=== PATIENT | male | born 1990 | race Two or more races ===

== ENCOUNTER 2018-11-04 13:07 | Emergency (ER) | payer SELFPAY ==
[~2018-11-04] VITALS: Ht 188 cm; Wt 81.6 kg
--- NOTE | 2018-11-04 13:30 | NUR ---
ED Nurse Note: pt brought in by [facility] c/o behavioral, per EMS report, pt consumed alcohol today and was showing combative and aggressive behaviors toward other people at the motel. Pt states he did drink alcohol but denies doing illegal drugs. pt AA&ox4, gcs=15, calm and cooperative, skin warm and dry, resp even and unlabored on RA, -n/v/d, ambulates w/ steady gait, vss. pt denies HI/SI/VH/AH. will cont monitor.
--- NOTE | 2018-11-04 13:45 | NUR ---
ED Nurse Note: pt belongings in locker 3, pt wallet, carkey and briones sent with security for safekeeping.
--- NOTE | 2018-11-04 13:54 | Emergency Room Report ---
History of Present Illness General Chief Complaint: Behavioral Complaint Source: Patient (Jt Davis) Present Illness HPI 28-year-old male patient presents the ER brought in by police for 5150 hold. Patient denies acute complaints at this time, denies shortness of breath or chest pain. Denies abdominal pain. Denies head trauma. Police report they were called to scene were patient was threatening violence against his family. Patient denies past medical history. Denies thoughts of hurting himself. Denies past psychiatric history. Reports history of drinking "a couple of beers ", denies drug use. (Jt Davis) Allergies: Coded Allergies: No Known Allergies (Unverified , 11/04/18) Patient History Past Medical History: see triage record Reviewed Nursing Documentation: PMH: Agreed; PSxH: Agreed (Jt Davis) Nursing Documentation-PMH Past Medical History: No Stated History (Jt Davis) Review of Systems All Other Systems: negative except mentioned in HPI (Jt Davis) Physical Exam Vital Signs Date Time Temp Pulse Resp B/P (MAP) Pulse Ox O2 Delivery O2 Flow Rate FiO2 11/04/18 13:03 99.0 116 20 134/90 99 Room Air Sp02 EP Interpretation: reviewed, normal General Appearance: well appearing, no apparent distress, alert, GCS 15, non- toxic Head: normocephalic, atraumatic, other - Negative jackson sign, negative raccoon eyes, no skull depression Eyes: bilateral eye normal inspection, bilateral eye PERRL ENT: hearing grossly normal, normal pharynx, no angioedema, normal voice, uvula midline, moist mucus membranes Neck: full range of motion, no bony tend Respiratory: lungs clear, normal breath sounds, no rhonchi, no respiratory distress, no accessory muscle use, no wheezing, speaking full sentences Cardiovascular #1: regular rate, rhythm, no edema Gastrointestinal: non tender, soft, no mass, non-distended, no guarding, no rebound Genitourinary: no CVA tenderness Musculoskeletal: back normal, digits/nails normal, gait/station normal, normal range of motion, non-tender Neurologic: alert, oriented x3, responsive, motor strength/tone normal, sensory intact Psychiatric: mood/affect normal Skin: no rash Lymphatic: no adenopathy (Jt Davis) Medical Decision Making PA Attestation Dr. Mary is my supervising Physician whom patient management has been discussed with. (Jt Davis) Homeless Attestation I, The treating physician Dr. Paredes, have assessed that patient is medically stable for discharge to an outpatient disposition. (Glenn Paredes MD) Diagnostic Impression: Primary Impression: Behavioral disorder Additional Impressions: Amphetamine abuse Alcohol abuse ER Course Pt. presents to the ED c/o behavioral disorder intoxication. Ddx considered but are not limited to anxiety, depression, drug use, alcohol use , behavioral disorder. Denies head trauma, negative jackson sign, negative raccoon eyes, no skull depression, cranial nerves intact as tested, no focal neuro deficits, require CT head at this time, low suspicion for ICH. Vital signs: are WNL, pt. is afebrile Ordered labs, urine drug screen, serum alcohol. ER COURSE: Physical exam benign. Patient pain of x4, alert and oriented to person place time and president. CBC unremarkable, no elevation WBCs CMP unremarkable, no elevation in LFTs Acetaminophen and salicylate levels WNL Serum alcohol 22, provided with fluids. Urine drug screen positive for amphetamine, remainder negative. Patient resting comfortably in no acute distress, nontoxic appearing. Patient medically cleared. Patient signed out to Dr. Lomeli. - Please note that this Emergency Department Report was dictated using [employer] operator technology software, occasionally this can lead to erroneous entry secondary to interpretation by the dictation equipment. [employer] Test 11/04/18 14:11 11/04/18 18:10 White Blood Count 8.3 K/UL (4.8-10.8) Red Blood Count 4.99 M/UL (4.70-6.10) Hemoglobin 15.3 G/DL (14.2-18.0) Hematocrit 44.9 % (42.0-52.0) Mean Corpuscular Volume 90 FL (80-99) Mean Corpuscular Hemoglobin 30.6 PG (27.0-31.0) Mean Corpuscular Hemoglobin Concent 34.0 G/DL (32.0-36.0) Red Cell Distribution Width 11.4 % (11.6-14.8) Platelet Count 321 K/UL (150-450) Mean Platelet Volume 5.3 FL (6.5-10.1) Neutrophils (%) (Auto) 57.0 % (45.0-75.0) Lymphocytes (%) (Auto) 28.5 % (20.0-45.0) Monocytes (%) (Auto) 7.9 % (1.0-10.0) Eosinophils (%) (Auto) 4.7 % (0.0-3.0) Basophils (%) (Auto) 1.8 % (0.0-2.0) Sodium Level 139 MMOL/L (136-145) Potassium Level 3.6 MMOL/L (3.5-5.1) Chloride Level 105 MMOL/L (98-107) Carbon Dioxide Level 27 MMOL/L (21-32) Anion Gap 7 mmol/L (5-15) Blood Urea Nitrogen 11 mg/dL (7-18) Creatinine 1.0 MG/DL (0.55-1.30) Estimat Glomerular Filtration Rate > 60 mL/min (>60) Glucose Level 97 MG/DL (74-106) Calcium Level 9.0 MG/DL (8.5-10.1) Total Bilirubin 0.3 MG/DL (0.2-1.0) Aspartate Amino Transf (AST/SGOT) 17 U/L (15-37) Alanine Aminotransferase (ALT/SGPT) 23 U/L (12-78) Alkaline Phosphatase 85 U/L (46-116) Total Protein 6.9 G/DL (6.4-8.2) Albumin 3.8 G/DL (3.4-5.0) Globulin 3.1 g/dL Albumin/Globulin Ratio 1.2 (1.0-2.7) Salicylates Level 0.7 ug/mL (2.8-20) Acetaminophen Level < 2 MCG/ML (10-30) Serum Alcohol 22 mg/dL Urine Opiates Screen Negative (NEGATIVE) Urine Barbiturates Screen Negative (NEGATIVE) Phencyclidine (PCP) Screen Negative (NEGATIVE) Urine Amphetamines Screen Positive (NEGATIVE) Urine Benzodiazepines Screen Negative (NEGATIVE) Urine Cocaine Screen Negative (NEGATIVE) Urine Marijuana (THC) Screen Negative (NEGATIVE) (Jt Davis P.A.) ER Course Please see above note. Patient sleepy but oriented and calm. Contact our psychiatrist to come to evaluate. Cleared from 5150 by our psychiatrist. Patient wants to go had has means to support himself at this time. Denies SI or HI. Patient stable for outpatient observation and treatment. Laboratory Tests Test 11/04/18 14:11 11/04/18 18:10 White Blood Count 8.3 K/UL (4.8-10.8) Red Blood Count 4.99 M/UL (4.70-6.10) Hemoglobin 15.3 G/DL (14.2-18.0) Hematocrit 44.9 % (42.0-52.0) Mean Corpuscular Volume 90 FL (80-99) Mean Corpuscular Hemoglobin 30.6 PG (27.0-31.0) Mean Corpuscular Hemoglobin Concent 34.0 G/DL (32.0-36.0) Red Cell Distribution Width 11.4 % (11.6-14.8) L Platelet Count 321 K/UL (150-450) Mean Platelet Volume 5.3 FL (6.5-10.1) L Neutrophils (%) (Auto) 57.0 % (45.0-75.0) Lymphocytes (%) (Auto) 28.5 % (20.0-45.0) Monocytes (%) (Auto) 7.9 % (1.0-10.0) Eosinophils (%) (Auto) 4.7 % (0.0-3.0) H Basophils (%) (Auto) 1.8 % (0.0-2.0) Sodium Level 139 MMOL/L (136-145) Potassium Level 3.6 MMOL/L (3.5-5.1) Chloride Level 105 MMOL/L (98-107) Carbon Dioxide Level 27 MMOL/L (21-32) Anion Gap 7 mmol/L (5-15) Blood Urea Nitrogen 11 mg/dL (7-18) Creatinine 1.0 MG/DL (0.55-1.30) Estimate Glomerular Filtration Rate > 60 mL/min (>60) Glucose Level 97 MG/DL (74-106) Calcium Level 9.0 MG/DL (8.5-10.1) Total Bilirubin 0.3 MG/DL (0.2-1.0) Aspartate Amino Transferase (AST) 17 U/L (15-37) Alanine Aminotransferase (ALT) 23 U/L (12-78) Alkaline Phosphatase 85 U/L (46-116) Total Protein 6.9 G/DL (6.4-8.2) Albumin 3.8 G/DL (3.4-5.0) Globulin 3.1 g/dL Albumin/Globulin Ratio 1.2 (1.0-2.7) Salicylates Level 0.7 ug/mL (2.8-20) L Acetaminophen Level < 2 MCG/ML (10-30) L Serum Alcohol 22 mg/dL Urine Opiates Screen Negative (NEGATIVE) Urine Barbiturates Screen Negative (NEGATIVE) Phencyclidine (PCP) Screen Negative (NEGATIVE) Urine Amphetamines Screen Positive (NEGATIVE) H Urine Benzodiazepines Screen Negative (NEGATIVE) Urine Cocaine Screen Negative (NEGATIVE) Urine Marijuana (THC) Screen Negative (NEGATIVE) (Glenn Paredes MD) Last Vital Signs Date Time Temp Pulse Resp B/P (MAP) Pulse Ox O2 Delivery O2 Flow Rate FiO2 11/04/18 13:03 99.0 116 20 134/90 99 Room Air Status: improved (Jt Davis) Last Vital Signs Date Time Temp Pulse Resp B/P (MAP) Pulse Ox O2 Delivery O2 Flow Rate FiO2 11/05/18 11:13 97.8 75 17 129/75 99 Room Air Status: improved (Glenn Paredes MD) Disposition: HOME, SELF-CARE Condition: Improved Jt Davis Nov 04, 2018 13:54 Glenn Paredes MD Nov 05, 2018 07:33
[2018-11-04 14:20] LABS: BASOPHILS % (AUTO) 1.8 % (0.0-2.0); EOSINOPHILS % (AUTO) 4.7 % (0.0-3.0); HEMATOCRIT 44.9 % (42.0-52.0); HEMOGLOBIN 15.3 G/DL (14.2-18.0); LYMPHOCYTES % (AUTO) 28.5 % (20.0-45.0); MEAN CORPUSCULAR VOLUME 90 FL (80-99); MONOCYTES % (AUTO) 7.9 % (1.0-10.0); PLATELET COUNT 321 K/UL (150-450); RED BLOOD COUNT 4.99 M/UL (4.70-6.10); RED CELL DISTRIBUTION WIDTH 11.4 % (11.6-14.8); WHITE BLOOD COUNT 8.3 K/UL (4.8-10.8)
[2018-11-04 14:34] LABS: ANION GAP 7 mmol/L (5-15); BLOOD UREA NITROGEN 11 mg/dL (7-18); CARBON DIOXIDE 27 MMOL/L (21-32); CHLORIDE 105 MMOL/L (98-107); POTASSIUM 3.6 MMOL/L (3.5-5.1); SODIUM 139 MMOL/L (136-145)
[2018-11-04 14:39] LABS: ALANINE AMINOTRANSFERASE 23 U/L (12-78); ALBUMIN 3.8 G/DL (3.4-5.0); ALBUMIN/GLOBULIN RATIO 1.2 (1.0-2.7); ALKALINE PHOSPHATASE 85 U/L (46-116); ASPARTATE AMINO TRANSFERASE 17 U/L (15-37); BILIRUBIN,TOTAL 0.3 MG/DL (0.2-1.0)
--- NOTE | 2018-11-04 15:00 | NUR ---
ED Nurse Note: attempted getting urine specimen, pt states he forgot to get it and unable to provide it at this time, will try again. ER provider aware.
[2018-11-04 15:42] VITALS: BP 130/87
--- NOTE | 2018-11-04 17:36 | NUR ---
ED Nurse Note: attempted getting urine specimen, pt states he doesn't have to go to restroom, ER provider notified.
[2018-11-04 17:40] VITALS: BP 129/87
--- NOTE | 2018-11-04 19:35 | NUR ---
ED Nurse Note: pt sleeping, resp even and unlabored on RA, airway intact, arousable to light shake, will cont monitor.
[2018-11-04 19:40] VITALS: BP 121/67
[2018-11-04 21:40] VITALS: BP 126/77
--- NOTE | 2018-11-04 23:09 | NUR ---
HAND-OFF: Report given to James RN and endorsed care.
--- NOTE | 2018-11-04 23:10 | NUR ---
ED Nurse Note: Received Report from [place]/FACUNDO. Pt is sleeping quietly at this time, will continue to monitor.
--- NOTE | 2018-11-05 00:20 | NUR ---
ED Nurse Note: Provided 2 cups of orange juices and a sandwich. Assisted pt to go to bathroom as well. Pt is A/O X4. VSS. Ambulated with steady gait.
[2018-11-05 00:30] VITALS: BP 123/72
--- NOTE | 2018-11-05 04:25 | NUR ---
ED Nurse Note: Assisted pt go to bathroom . Provided 2 cups of orange juices and a sandwich, as well. Pt is A/O X4. VSS. Ambulated with steady gait.
[2018-11-05 04:30] VITALS: BP 123/74
--- NOTE | 2018-11-05 05:05 | NUR ---
HAND-OFF: Report given to Ha/RN for continue care.Pt is A/O X4.VSS.Pt's briones kept with security. Belongings kept in Locker 3#.
[2018-11-05 10:50] VITALS: BP 129/75
[2018-11-05 11:13] VITALS: BP 129/75
--- NOTE | 2018-11-05 11:15 | NUR ---
ED Nurse Note:pt. was cleared for d/c by dr. Palmer, pt. is A/Ox4 indipendant, has place to go after discharge, homeless d/c forms were signed and jail information provided to the pt. ,he received d/c instructions also all his personal belongings with $4000 briones was retured to him and counted with superviser and security ,pt. signed valuble deposit return form
== END 2018-11-05 11:20 | disposition home or self-care (01) ==
LOC: EDBD 13:07 → EMR 13:40
DX: F91.9 Conduct disorder, unspecified (principal); F15.10 Other stimulant abuse, uncomplicated; F10.10 Alcohol abuse, uncomplicated
CPT/HCPCS: 36415; 80053; 80307; 85025; 96360; 99284; G0480; 80329